=== PATIENT | female | born 1950 | race Asian ===

== ENCOUNTER 2019-06-18 09:54 | Outpatient (CLI) | payer MEDICAID | END 2019-06-18 23:59 | disposition home or self-care (01) | LOC: RAD 09:54 | PROVIDERS: ATTEND Otolaryngology | DX: R13.13 Dysphagia, pharyngeal phase (principal) | CPT/HCPCS: 74220 ==

== ENCOUNTER 2023-09-09 15:52 | Outpatient (CLI) | payer MEDICAID | END 2023-09-09 23:59 | disposition home or self-care (01) | LOC: RAD 15:52 | PROVIDERS: ATTEND Internal Medicine | DX: M19.071 Primary osteoarthritis, right ankle and foot (principal); M79.674 Pain in right toe(s); R06.00 Dyspnea, unspecified | CPT/HCPCS: 71046; 73630 ==